=== PATIENT | female | born 1985 | race Caucasian/White ===

== ENCOUNTER 2019-05-16 19:23 | Emergency (ER) | payer MEDICAID ==
[~2019-05-16] VITALS: Ht 170.2 cm; Wt 68.0 kg
[2019-05-16 19:24] VITALS: BP 113/42
[2019-05-16] MEDS ORDERED: MUPIROCIN15 GM TOP (21:00)
== END 2019-05-16 21:20 | disposition home or self-care (01) ==
LOC: ER 19:23
DX: S60.414A Abrasion of right ring finger, initial encounter (principal); X58.XXXA Exposure to other specified factors, initial encounter; Y93.89 Activity, other specified; Y92.89 Other specified places as the place of occurrence of the external cause; Y99.8 Other external cause status

== ENCOUNTER 2021-05-02 21:43 | Emergency (ER) | payer MEDICAID ==
[~2021-05-02] VITALS: Ht 162.6 cm; Wt 74.8 kg
[~2021-05-02 21:43] MED LIST: MUPIROCIN15 GM TOP
[2021-05-02 22:21] LABS: ABSOLUTE NEUTROPHILS 3.1 thou/uL (1.4-8.2); BASOPHILS 0.5 % (0.0-2.0); EOSINOPHILS 3.4 % (0.0-3.0); HEMATOCRIT 35.2 % (37.0-47.0); HEMOGLOBIN 11.7 gm/dL (12.0-15.0); LYMPHOCYTES 34.1 % (24.0-44.0); MCH 29.2 pg (26.0-34.0); MCHC 33.2 g/dL (28.0-37.0); MCV 87.8 fL (80.0-100.0); MONOCYTES 8.7 % (1.0-8.0); PLATELET COUNT 221 thou/uL (150-400); POLYS 53.3 % (36.0-66.0); RBC 4.01 mil/uL (4.20-5.00); WBC 5.7 thou/uL (4.0-11.0)
[2021-05-02 22:23] LABS: CALCIUM 8.2 mg/dL (8.5-10.1); CREATININE 0.8 mg/dL (0.6-1.0); POTASSIUM 3.7 mmol/L (3.5-5.1)
[2021-05-02 22:29] LABS: ALBUMIN 3.4 g/dL (3.4-5.0); TOTAL BILIRUBIN 0.5 mg/dL (0.2-1.0); TOTAL PROTEIN 6.7 g/dL (6.4-8.2)
[2021-05-03] MEDS ORDERED: FLEXERIL PO (00:53)
[2021-05-03 00:58] VITALS: BP 112/83
== END 2021-05-03 01:00 | disposition home or self-care (01) ==
LOC: ER 21:43
PROVIDERS: Emergency Medicine
DX: M54.9 Dorsalgia, unspecified (principal); M54.2 Cervicalgia; R07.89 Other chest pain; R10.13 Epigastric pain; V89.2XXA Person injured in unspecified motor-vehicle accident, traffic, initial encounter; Y93.89 Activity, other specified; Y92.89 Other specified places as the place of occurrence of the external cause; Y99.8 Other external cause status